=== PATIENT | female | born 1945 | race Two or more races ===

== ENCOUNTER 2019-02-04 03:10 | Emergency (ER) | payer MEDICARE ==
[~2019-02-04] VITALS: Ht 160 cm; Wt 41.7 kg
--- NOTE | 2019-02-04 03:39 | NUR ---
JESS FROM HOME. TO ER BED 9. AAOX4. BREATHING EVEN AND UNLABORED. C/O MID CHEST PAIN. PT REPORTS PAIN AT 3/10 PRESSURE AND DULL NON RADIATING SINCE THIS THIS EVENINING AROUND 10PM PER PT. PT HAS DX OF BREAT CANCER. NOTED BILLARY DRAIN ON ABDOMEN WITH YELLOW BILE DRAINAGE. PT REPORTS THAT SHE FEEL SHORT OF BREATH DESPITE O2 SAT 99-100%. PT CAME IN W/ O2 VIA NC @ 2LPM, DISCONTINUED DURING ASSESSMENT, PT MAINTAINING O2 SAT @ 99%. EMS REPORTS THAT PT WAS GIVEN 2 NITROGLYCERIN SPRAY ENROUTE TO HOSPITAL WHICH DECREASED THE PAIN. EMS ALSO REPORTS THAT PT WAS GIVEN ASPIRIN 325MG. PT PLACED ON MONITOR. EKG DONE AT BEDSIDE. BLOOD DRAWN AND GIVEN TO INTERRELATED SPECIAL EDUCATION TEACHER AT BEDSIDE.
[2019-02-04 03:44] LABS: BASOPHILS % (AUTO) 0.6 % (0.0-2.0); EOSINOPHILS % (AUTO) 0.9 % (0.0-6.0); HEMATOCRIT 44 % (33-45); LYMPHOCYTES % (AUTO) 26.5 % (20.0-44.0); MEAN CORPUSCULAR HGB CONC 34 g/dl (31.0-36.0); MEAN CORPUSCULAR VOLUME 98 fL (82-100); MONOCYTES # (AUTO) 0.4 /CMM (0.1-1.30); NEUTROPHILS # (AUTO) 5.2 /CMM (1.8-8.9); PLATELET COUNT (AUTO) 498 /CMM (150-450); RED BLOOD CELL COUNT(AUTO) 4.49 MIL/uL (4.0-5.2); WHITE BLOOD COUNT (AUTO) 7.7 K/uL (4.3-11.0)
[2019-02-04 03:54] LABS: ALANINE AMINOTRANSFERASE 387 U/L (12-78); ALBUMIN 3.3 g/dL (3.4-5.0); ALKALINE PHOSPHATASE 177 U/L (46-116); ASPARTATE AMINOTRANSFERASE 128 U/L (15-37); BILIRUBIN,DIRECT 2.7 mg/dL (0.0-0.2); CALCIUM, SERUM 8.5 mg/dL (8.5-10.1); CARBON DIOXIDE 24 mmol/L (21-32); CHLORIDE 93 mmol/L (98-107); CREATININE 0.7 mg/dL (0.6-1.3); GLUCOSE 127 mg/dL (74-106); POTASSIUM 4.6 mmol/L (3.5-5.1); SODIUM SERUM 128 mmol/L (136-145); TOTAL PROTEIN, SERUM 8.8 g/dL (6.4-8.2); UREA NITROGEN, BLOOD 21 mg/dL (7-18)
[2019-02-04] MEDS ORDERED: IOHEXOL-350 100 ML VIAL IV ONE ×2 (04:12→06:35)
[2019-02-04] MEDS ORDERED: CT SWABBABLE VALVE TRANS SET 1 EA INFUS.SET MC ONE ×2 (04:12→06:35)
[2019-02-04] MEDS ORDERED: IV NS 0.9% 250 ML IV ONE (04:13)
[2019-02-04] MEDS: IV NS 0.9% 1,000 ML BAG IV ONE (04:46)
--- NOTE | 2019-02-04 05:00 | NUR ---
PT BILLARY DRAINAGE BAG EMPTIED WITH 120ML OF YELLOW BILE DRAINAGE
--- NOTE | 2019-02-04 06:30 | NUR ---
PT TO CT ON HALIE
--- NOTE | 2019-02-04 07:24 | NUR ---
PT ENDORSED TO PASQU[facility] BAXTER FOR FIONA
--- NOTE | 2019-02-04 07:45 | NUR ---
IV removed. Catheter intact and site benign. Pressure and 4x4 applied to site. No bleeding noted. Patient discharged to home in stable condition. Written and verbal after care instructions given. Patient verbalizes understanding of instruction.
[2019-02-04 07:46] VITALS: BP 111/58
== END 2019-02-04 07:57 | disposition home or self-care (01) ==
LOC: ER 03:15
DX: R07.89 Other chest pain (principal); Z85.3 Personal history of malignant neoplasm of breast; Z88.8 Allergy status to other drugs, medicaments and biological substances
CPT/HCPCS: 36415; 71045; 71260; 71275; 74177; 80048; 80076; 84484; 85025; 85730; 93005; 99284; J7030; J7050; Q9967 ×2